=== PATIENT | female | born 1970 | race Caucasian/White ===

== ENCOUNTER 2017-04-19 09:06 | Day surgery (SDC) | payer OTHER ==
--- NOTE | 2017-04-17 07:02 | HP ---
HISTORY OF PRESENT ILLNESS: Anisa Ramirez is a 46-year-old female with symptomatic gallstones, h as recurrent right upper quadrant pain, back radiation, nausea. She is referred by Dr. Saleem. She adorno d ultrasound on 11/02/2016 at [facility] revealing cholelithiasis. She had fatty liver sims ges. PAST SURGICAL HISTORY: Noncontributory. PAST MEDICAL HISTORY: Past history of seizures, although she has not seizure in many years, she is n ot on any seizure medications. History of COPD and asthma. She uses inhalers p.r.n. TOBACCO: None since 04/2011. ALCOHOL: None. REVIEW OF SYSTEMS: Ten point noncontributory. PHYSICAL EXAMINATION: VITAL SIGNS: Weight 310 pounds, height 5 foot 10 inches, blood pressure 132/75, pulse 85, temperatur e 98.7 degrees. HEAD, EARS, EYES, NOSE AND THROAT: Unremarkable. LUNGS: Clear to auscultation. CARDIAC: Regular rate and rhythm without murmur or gallop. ABDOMEN: Soft, obese, tenderness in the right upper quadrant with guarding. EXTREMITIES: Unremarkable. ASSESSMENT: Cholecystitis and cholelithiasis, acute and chronic cholecystitis. Recommend laparoscop ic video cholecystectomy. Risk of infection, bleeding, visceral and biliary injury discussed. Quest ions answered. PLAN: Laparoscopic cholecystectomy as soon as the halfway approves this. CBC and comp met preoperati richard.
[2017-04-18 11:40] VITALS: BMI 44.1
[2017-04-19] MEDS ORDERED: Levofloxacin 500 mg/D5W 100 ml Premix Bag ONE (09:31)
[2017-04-19] MEDS ORDERED: Ketorolac Tromethamine 30 MG/ML VIAL ONE (09:31)
[2017-04-19] MEDS ORDERED: Fentanyl 100 MCG/2 ML VIAL ONE (11:27)
[2017-04-19] MEDS ORDERED: Bupivacaine PF 0.5% 30 ML VIAL ONE (11:28)
[2017-04-19] MEDS ORDERED: Lidocaine 2% w/Epinephrine 1:200K 20 ML VIAL ONE (11:28)
[2017-04-19] MEDS ORDERED: Bupivacaine 0.25% HCL 30 ML VIAL ONE (11:29)
--- NOTE | 2017-04-19 12:54 | OP ---
DATE OF PROCEDURE: 04/19/2017 PREOPERATIVE DIAGNOSES: Acute cholecystitis, cholelithiasis, cystic duct obstruction with a gallston e. POSTOPERATIVE DIAGNOSES: Acute cholecystitis, cholelithiasis, cystic duct obstruction with a gallsto ne. PROCEDURE: Laparoscopic video cholecystectomy. SURGEON: Dr. Memo Law ANESTHESIA: General, 0.25% Marcaine with epinephrine, 30 mL, mixed with 2% Xylocaine, 10 mL. PROCEDURE IN DETAIL: Patient taken to the operating room where under general anesthesia, abdomen was prepared with ChloraPrep and draped in routine fashion. Local anesthetic infiltrated into skin and subcutaneous tissue about each port site. Infraumbilical incision made and pneumoperitoneum to 15 mm Hg obtained with the Veress needle, replacing it with a 5 port and video laparoscope inserted. Right subxiphoid incision made and 11 port placed. Right subcostal incision made mid clavicular anterior axillary lines and 5 ports placed. Liver appeared to be normal. Fundus of gallbladder grasped and r eflected cephalad to examine grasped and reflected laterally. Cystic artery and duct dissected free. Critical view obtained with pericholecystic dissection and 2/3rds cystic plate. Again, stone obstr ucting the cystic duct outlet appreciated retrograde cuff towards the gallbladder and cystic artery a nd duct doubly clipped proximally, divided, and gallbladder dissected free from the liver bed obtaini ng good hemostasis prior to division of final peritoneal attachments. Gallbladder and stones removed and submitted to Pathology. Good hemostasis achieved with cautery ensured. Irrigant and pneumoperi toneum evacuated. All instruments removed and all skin incisions approximated with interrupted subde rmal 4-0 Monocryl and DermaGlue applied.
[2017-04-19] MEDS ORDERED: Dexamethasone 20 MG/5 ML VIAL ONE (16:58)
[2017-04-19] MEDS ORDERED: Ondansetron HCl/PF 4 MG/2 ML Vial ONE (16:58)
[2017-04-19] MEDS ORDERED: Glycopyrrolate 0.2 MG/ML 5 ML SYRINGE ONE (16:58)
[2017-04-19] MEDS ORDERED: Lidocaine 1% PF 5 ML VIAL ONE (16:58)
[2017-04-19] MEDS ORDERED: Propofol 200 MG/20 ML VIAL ONE (16:58)
== END 2017-04-19 15:45 | disposition home or self-care (01) ==
LOC: SDC 09:06
PROVIDERS: ATTEND Specialist
PROC: 0FT44ZZ Resection of Gallbladder, Percutaneous Endoscopic Approach (ICD-10-PCS; principal; 2017-04-19)
DX: K80.10 Calculus of gallbladder with chronic cholecystitis without obstruction (principal); I10 Essential (primary) hypertension; E66.01 Morbid (severe) obesity due to excess calories; J44.9 Chronic obstructive pulmonary disease, unspecified; J45.909 Unspecified asthma, uncomplicated; Z79.51 Long term (current) use of inhaled steroids; Z79.899 Other long term (current) drug therapy; Z68.41 Body mass index [BMI] 40.0-44.9, adult; Z86.69 Personal history of other diseases of the nervous system and sense organs
CPT/HCPCS: 88304; J0131; J1100; J1885; J1956; J2001; J2405; J2704; J3010; J7620; S0020

== ENCOUNTER 2018-09-23 07:24 | Day surgery (SDC) | payer OTHER ==
[2018-09-19 10:10] VITALS: BMI 45.1
[2018-09-23] MEDS ORDERED: PROPOFOL 200 MG/20 ML VIAL ONE (11:39)
--- NOTE | 2018-09-24 09:30 | OP ---
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 PROCEDURE PERFORMED: Colonoscopy with snare polypectomy. INDICATION: Rectal bleeding. This is the patient's first colonoscopy. MEDICATIONS: See Anesthesia record. FINDINGS: After discussion of the risks, benefits, and alternatives of the procedure, informed consent was obtained and witnessed. Pre-endoscopic cardiopulmonary examination was satisfactory. Time-out was performed before sedation was achieved. Sedation was achieved with Anesthesia assistance in the endoscopy unit. Digital rectal exam was performed and demonstrated a small hemorrhoidal skin tag. A Pentax adult colonoscope was inserted into the anus and passed forward to the cecum in the usual fashion. The cecal base was identified by the appendiceal orifice as well as the ileocecal valve. The terminal ileum was intubated and the ileal mucosa appeared normal. The colonoscope was then slowly withdrawn in a gradual and circumferential manner with careful examination of the entire colonic mucosa. The quality of the prep was good. In the sigmoid colon, there was a sessile polyp measuring about 3 mm in diameter. This was completely removed with cold snare and retrieved for pathology. In the rectum, there was another sessile polyp measuring 1 mm in diameter. This was completely removed with cold snare and retrieved for pathology. Retroflexion in the rectum demonstrated internal hemorrhoids. There was no other pathology noted on the entire exam. No other bleeding lesions. The colonoscope was completely withdrawn and the patient allowed to recover. The patient tolerated the procedure well. There were no immediate postprocedure complications. IMPRESSION: 1. Internal hemorrhoids. 2. A 3-mm sigmoid colon polyp, completely removed with cold snare and retrieved for pathology. 3. A 1-mm rectal polyp, completely removed with cold snare and retrieved for pathology. RECOMMENDATIONS: 1. Follow up pathology on the 2 colon polyps. 2. Repeat colonoscopy to be based on pathology results. If the polyps are both hyperplastic, repeat colonoscopy in 10 years for screening. If one or both polyps are adenomatous, repeat colonoscopy in 5 years for surveillance. 3. Conservative routine hemorrhoidal cares. The patient can use a stool softener such as docusate 100 mg twice daily on an as-needed basis. Job ID: [id number]
== END 2018-09-23 10:35 | disposition home or self-care (01) ==
LOC: SDC 07:24
PROVIDERS: ATTEND Internal Medicine
PROC: 0DBN8ZX Excision of Sigmoid Colon, Via Natural or Artificial Opening Endoscopic, Diagnostic (ICD-10-PCS; principal; 2018-09-23)
PROC: 0DBP8ZX Excision of Rectum, Via Natural or Artificial Opening Endoscopic, Diagnostic (ICD-10-PCS; principal; 2018-09-23)
DX: K62.5 Hemorrhage of anus and rectum (principal); D12.5 Benign neoplasm of sigmoid colon; K62.1 Rectal polyp; K64.4 Residual hemorrhoidal skin tags; Z79.899 Other long term (current) drug therapy
CPT/HCPCS: 88305; J2704

== ENCOUNTER 2018-10-16 15:18 | Emergency (ER) | payer OTHER ==
[~2018-10-16 15:18] MED LIST: ISOVUE-370 76%-LOCM 1 ML ONE
[2018-10-16 15:58] LABS: #Lymphocytes 0.5 thou/uL (1.20-3.40); #Monocytes 0.5 thou/uL (0.11-0.59); #Neutrophils 3.4 thou/uL (1.40-6.50); %Basophils 0.1 % (0.0-1.0); %Eosinophils 0.4 % (0.0-10.0); %Lymphocytes 10.8 % (21.0-51.0); %Neutrophils 76.6 % (42.0-75.0); Hemoglobin 11.1 g/dL (12.0-16.0); Mean Corpuscular HGB CONC 33.2 g/dL (32.0-36.0); Mean Corpuscular Hemoglobin 28.9 pg (27.0-31.0); Mean Corpuscular Volume 87.1 fL (78.0-98.0); Mean Platelet Volume 7.6 fL (7.4-10.4); Platelet Count 160 thou/uL (130-400); RBC Distribution Width 12.7 % (11.5-14.5); Red Blood Cell (RBC) Count 3.84 mill/uL (4.20-5.40); White Blood Cell (WBC) Count 4.4 thou/uL (4.8-10.8)
[2018-10-16] MEDS ORDERED: Ketorolac Tromethamine 30 MG/ML VIAL ONE (15:58)
--- NOTE | 2018-10-16 16:17 | RAD ---
PORTABLE CHEST ONE VIEW: 10/16/18 at 4:09 p.m. HISTORY: Cough, chest pain. FINDINGS: The heart size is borderline. The lungs are well expanded without focal areas of consolidation, pneum othoraces or pleural effusions. There is no evidence of jayson pulmonary edema. IMPRESSION: No acute process. POS: OFF
[2018-10-16 16:21] LABS: ALT (SGPT) 15 U/L (8-55); AST (SGOT) 16 U/L (5-34); Albumin 3.8 g/dL (3.5-5.0); Alkaline Phosphatase 64 U/L (40-150); Anion Gap 14 mmol/L (10-20); BUN (Urea Nitrogen) 8 mg/dL (7.0-18.7); Bilirubin, Total 0.5 mg/dL (0.2-1.2); Calc. Creatinine Clearance 0 mL/min (70-130); Calcium 8.4 mg/dL (7.8-10.44); Carbon Dioxide 23 mmol/L (22-29); Chloride 102 mmol/L (98-107); Estimated GFR-MDRD 83; Globulin 2.4 g/dL (2.4-3.5); Glucose 96 mg/dL (70-105); Potassium 3.8 mmol/L (3.5-5.1); Protein, Total 6.2 g/dL (6.0-8.3); Sodium 135 mmol/L (136-145)
--- NOTE | 2018-10-16 18:19 | CT ---
CT ANGIO OF CHEST PERFORMED WITH INTRAVENOUS CONTRAST ENHANCEMENT WITH 3D RECONSTRUCTIONS: 10/16/18 HISTORY: Chest pain that started today. Chest pain is worse with deep breathing. The lungs are clear of any infiltrative process. There are no pulmonary nodules or pleural effusions. There is no significant mediastinal or hilar adenopathy. The thoracic aorta is normal in caliber. There is fair pulmonary artery opacification. A more peripheral emboli cannot be excluded but there i s no evidence for pulmonary embolus. The visualized liver parenchyma shows no focal abnormalities. IMPRESSION: No CT evidence for pulmonary embolus. POS: OFF
--- NOTE | 2018-10-18 11:05 | EKG ---
Test Reason : CP Blood Pressure : / mmHG Vent. Rate : 088 BPM Atrial Rate : 088 BPM P-R Int : 158 ms QRS Dur : 096 ms QT Int : 386 ms P-R-T Axes : 031 014 026 degrees QTc Int : 467 ms Normal sinus rhythm Cannot rule out Anterior infarct , age undetermined Abnormal ECG Confirmed by JARETH VALDEZ ([id number]), associate editor URI DORANTES ([id number]) on 10/18/2018 11:04:52 AM Referred By: Confirmed By:JARETH VALDEZ
== END 2018-10-16 19:04 ==
LOC: ERS 15:18
DX: J20.9 Acute bronchitis, unspecified (principal); E78.5 Hyperlipidemia, unspecified; I11.0 Hypertensive heart disease with heart failure; I50.9 Heart failure, unspecified; F17.210 Nicotine dependence, cigarettes, uncomplicated; Z79.84 Long term (current) use of oral hypoglycemic drugs; Z79.899 Other long term (current) drug therapy
CPT/HCPCS: 36415; 71045; 71275; 80053; 84484; 85025; 85379; 93005; 96374; J1885; Q9966